=== PATIENT | male | born 1995 | race African-American/Black ===

== ENCOUNTER 2017-03-28 23:17 | Emergency (ER) | payer MEDICAID, OTHER ==
[~2017-03-28] VITALS: Ht 175.3 cm; Wt 109.0 kg
[2017-03-29] MEDS: IBUPROFEN 800MG TABLET PO ONE (01:42)
[2017-03-29 02:00] VITALS: BP 124/62
== END 2017-03-29 03:10 | disposition home or self-care (01) ==
LOC: ER 23:17
DX: S80.11XA Contusion of right lower leg, initial encounter (principal); V03.99XA Pedestrian with other conveyance injured in collision with car, pick-up truck or van, unspecified whether traffic or nontraffic accident, initial encounter; Y93.89 Activity, other specified; Y92.89 Other specified places as the place of occurrence of the external cause; Y99.8 Other external cause status
CPT/HCPCS: 73590; 99284

== ENCOUNTER 2017-07-10 16:27 | Emergency (ER) | payer MEDICAID ==
[~2017-07-10] VITALS: Ht 175.3 cm; Wt 111.0 kg
[2017-07-10 19:25] VITALS: BP 121/69
== END 2017-07-10 19:35 | disposition home or self-care (01) ==
LOC: ER 16:27
DX: Z51.89 Encounter for other specified aftercare (principal); M62.82 Rhabdomyolysis
CPT/HCPCS: 99282

== ENCOUNTER 2018-06-17 17:24 | Emergency (ER) | payer SELFPAY | END 2018-06-17 18:43 | disposition left against medical advice (07) | LOC: ER 17:24 | DX: Z53.21 Procedure and treatment not carried out due to patient leaving prior to being seen by health care provider (principal) ==

== ENCOUNTER 2019-09-28 13:36 | Emergency (ER) | payer MEDICAID ==
[~2019-09-28] VITALS: Ht 175.3 cm; Wt 111.0 kg
[2019-09-28 13:46] VITALS: BP 130/85
[2019-09-28] MEDS ORDERED: DEXAMETHASONE 10 MG/ML VIAL IM ONE (15:15)
[2019-09-28] MEDS ORDERED: PENICILLIN G BENZATHINE 1,200,000 UNITS/2ML SYR IM ONE (15:15)
== END 2019-09-28 17:04 | disposition home or self-care (01) ==
LOC: ER 13:36
DX: J02.8 Acute pharyngitis due to other specified organisms (principal)
CPT/HCPCS: 96372; 99283; J0561; J1100

== ENCOUNTER 2021-01-30 08:54 | Emergency (ER) | payer MEDICAID ==
[~2021-01-30] VITALS: Ht 175.3 cm; Wt 136.0 kg
[2021-01-30] MEDS ORDERED: IBUPROFEN 600MG TABLET PO ONE (09:15)
[2021-01-30 09:33] VITALS: BP 149/92
[2021-01-30] MEDS ORDERED: NAPR-681 MT (10:38)
== END 2021-01-30 10:48 | disposition home or self-care (01) ==
LOC: ER 08:54
DX: M25.521 Pain in right elbow (principal); Z98.890 Other specified postprocedural states
CPT/HCPCS: 73080; 73090; 99284; A4565

== ENCOUNTER 2021-08-01 15:42 | Emergency (ER) | payer MEDICAID ==
[~2021-08-01] VITALS: Ht 170.2 cm; Wt 136.0 kg
[~2021-08-01 15:42] MED LIST: NAPR-681 MT
[2021-08-01 16:08] VITALS: BP 136/82
[2021-08-01] MEDS ORDERED: BACITRACIN ZINC OINT UDPKT TOP ONE (16:30)
[2021-08-01] MEDS ORDERED: TETANUS, DIPHTHERIA, PERTUSSIS VAC/PF 0.5ML (>7YR OLD) IM ONE (16:30)
[2021-08-01] MEDS ORDERED: CEPH500C2 MT (16:31)
== END 2021-08-01 16:45 | disposition home or self-care (01) ==
LOC: ER 15:42
DX: S01.511A Laceration without foreign body of lip, initial encounter (principal); X58.XXXA Exposure to other specified factors, initial encounter; Y93.89 Activity, other specified; Y92.89 Other specified places as the place of occurrence of the external cause; Y99.8 Other external cause status; Z98.890 Other specified postprocedural states
CPT/HCPCS: 99283

== ENCOUNTER 2022-01-16 11:41 | Emergency (ER) | payer MEDICAID ==
[~2022-01-16] VITALS: Ht 172.7 cm; Wt 133.0 kg
[~2022-01-16 11:41] MED LIST changes: +CEPH500C2 MT
[2022-01-16 11:49] VITALS: BP 127/76
[2022-01-16] MEDS ORDERED: KETOROLAC 60MG/2ML VIAL IM ONE (12:00)
== END 2022-01-16 15:41 | disposition left against medical advice (07) ==
LOC: ER 12:17
DX: M25.572 Pain in left ankle and joints of left foot (principal)
CPT/HCPCS: 99281